=== PATIENT | female | born 1940 | race Caucasian/White ===

== ENCOUNTER 2024-01-10 05:45 | Emergency (ER) | payer OTHER, BC ==
[~2024-01-10] VITALS: Ht 170.2 cm; Wt 68.0 kg
[2024-01-10 05:48] VITALS: BP 189/71; PULSE 54; RESP 20; TEMP 98.2; O2SAT 99
--- NOTE | 2024-01-10 05:54 | NUR ---
PT JORGEA BLS TO ER BED 09
--- NOTE | 2024-01-10 06:01 | NUR ---
PATIENT PRESENTS TO ED WITH S/P FALL PT C/O LEFT ARM PAIN. PT STATES SHE FELL AT HOME IN HER BATHROOM, SHE LOST HER BALANCE. DENIES N/V/D; SKIN IS PINK/WARM/DRY; PT HAS LAC TO LEFT ELBOW. AAOX4 LUNGS CLEAR BL; HR EVEN AND REGULAR; PT DENIES ANY FEVER, CP, SOB, OR COUGH AT THIS TIME; PT DENIES LOC OR HITTING HER HEAD. PT REPORTS NOT BEING ON ANY BLOOD THINNERS. PATIENT STATES PAIN OF 6/10 AT THIS TIME; VSS; PATIENT POSITIONED FOR COMFORT; HOB ELEVATED; BEDRAILS UP X2; BED DOWN. ER MD MADE AWARE OF PT STATUS. PMHX HTN, DM2 NKA
--- NOTE | 2024-01-10 06:30 | NUR ---
ASSISTED PT TO RESTROOM VIA W/C FOR URINE COLLECTION.
--- NOTE | 2024-01-10 06:44 | NUR ---
URINE SENT TO LAB.
--- NOTE | 2024-01-10 06:48 | NUR ---
XRAY AT BEDSIDE.
[2024-01-10 06:59] LABS: APPEARANCE,URINE CLEAR (CLEAR); BILIRUBIN,URINE NEGATIVE (NEGATIVE); BLOOD, URINE NEGATIVE (NEGATIVE); COLOR,URINE YELLOW (YELLOW); LEUKOCYTE ESTERASE ,URINE TRACE (NEGATIVE); NITRITE, URINE NEGATIVE (NEGATIVE); PROTEIN,URINE 1+ (NEGATIVE); UGLUCOSE NEGATIVE (NEGATIVE); UROBILINOGEN,URINE 0.2 EU/dL (0.2 - 1)
--- NOTE | 2024-01-10 07:03 | NUR ---
PT CONSENT OBTAINED FOR TDAP VACCINE, TDAP VACCINE GIVEN TO PT PER ERMD ORDER. PT TOLERATED WELL.
[2024-01-10] MEDS: BACITRACIN OINT 500 UNITS/GM PKT TP ONE (07:06)
--- NOTE | 2024-01-10 07:16 | NUR ---
TUYERE FITTER AT BEDSIDE DRAWING LABS.
[2024-01-10 07:17] LABS: BACTERIA,URINE FEW /HPF (None Seen); MUCUS,URINE None Seen /LPF (None Seen); RBC,URINE 0-5 /HPF (0-5); SQUAMOUS EPITHELIAL CELL,UR 4-10 (MOD) /LPF (0-3 (FEW)); TRICHOMONAS,URINE None Seen /HPF (None Seen); WBC,URINE 0-5 /HPF (0-5); WHITE BLOOD CELL CASTS,URINE None Seen /LPF (None Seen); YEAST,URINE None Seen /HPF (None Seen)
--- NOTE | 2024-01-10 07:19 | NUR ---
Pt report given to CECILIA FIELD. Transfer of care at this time.
--- NOTE | 2024-01-10 07:28 | NUR ---
WILL CONT., PLAN OF CARE FOR PT. WOUND CARE COMPLETED. PT STATES 2/10 SHOULDER PAIN.
[2024-01-10 07:29] LABS: BASOPHILS # (AUTO) 0.1 K/uL (0.00-0.22); BASOPHILS % (AUTO) 0.4 % (0.0-2.0); EOSINOPHILS # (AUTO) 0.2 K/uL (0-0.4); EOSINOPHILS % (AUTO) 1.6 % (0.0-4.0); HEMATOCRIT 33.5 % (36-48); HEMOGLOBIN 11.1 g/dL (12.0-16.0); LYMPHOCYTES # (AUTO) 1.3 K/uL (2.5-16.5); MEAN CORPUSCULAR HEMOGLOBIN 28 pg (27-31); MEAN CORPUSCULAR HGB CONC 33 g/dL (33-37); MEAN CORPUSCULAR VOLUME 85.4 fL (80-94); MONOCYTES # (AUTO) 0.7 K/uL (0.8-1.0); MONOCYTES % (AUTO) 6.3 % (1.7-9.3); NEUTROPHILS # (AUTO) 9.3 K/uL (1.8-7.7); NEUTROPHILS % (AUTO) 80.7 % (42.2-75.2); PLATELET COUNT (AUTO) 252 K/uL (140-450); RED BLOOD CELL COUNT(AUTO) 3.92 MIL/uL (4.20-5.40); RED CELL DISTRIBUTION WIDTH 14.1 % (11.6-13.7); WHITE BLOOD COUNT (AUTO) 11.5 K/uL (4.8-10.8)
[2024-01-10 07:44] LABS: ALANINE AMINOTRANSFERASE 25 U/L (12-78); ALKALINE PHOSPHATASE 139 U/L (50-136); ASPARTATE AMINOTRANSFERASE 25 U/L (15-37); BILIRUBIN,DIRECT 0.1 mg/dL (0.0-0.3); INR 0.96 (0.8-1.2); PARTIAL THROMBOPLASTIN TIME 24.7 secs (22-35.6); PROTHROMBIN TIME 10.1 secs (10.8-13.4); TOTAL BILIRUBIN 0.4 mg/dL (0.0-1.0); TOTAL PROTEIN, SERUM 7.3 g/dL (6.4-8.2)
[2024-01-10 07:52] LABS: ANION GAP 14.3 (8-16); CALCIUM 9.1 mg/dL (8.5-10.1); CARBON DIOXIDE 23.9 mmol/L (21-32); CHLORIDE 104 mmol/L (98-107); CREATININE 1.7 mg/dL (0.6-1.3); GLUCOSE 173 mg/dL (74-106); POTASSIUM 4.2 mmol/L (3.5-5.1); SODIUM SERUM 138 mmol/L (136-145); UREA NITROGEN, BLOOD 43 mg/dL (7-18)
[2024-01-10] MEDS: NACL 0.9% 1,000 ML IV ONE (08:39)
[2024-01-10] MEDS: amLODIPine 5 MG TAB PO ONE (08:43)
--- NOTE | 2024-01-10 09:46 | NUR ---
PT TO CT SCAN VIA KRUPA WITH MACHINE OPERATOR PICKER
--- NOTE | 2024-01-10 09:46 | NUR ---
PT'S BLOOD PRESSURE 208/58 REPORTED TO . AWAITING FURTHER ORDER.
--- NOTE | 2024-01-10 10:01 | NUR ---
pt to be transfred to [facility] due to higher level of care
[2024-01-10] MEDS: NICARDIPINE HYDROCHLORIDE 25 MG in NACL 0.9% 240 ML IV ONE (10:35)
[2024-01-10] MEDS: LABETALOL 20 MG/4 ML VIAL IVP ONE (11:51)
[2024-01-10] MEDS: CLONIDINE HYDROCHLORIDE 0.1 MG TAB PO ONE (12:05)
--- NOTE | 2024-01-10 12:09 | NUR ---
CALLED REPORT TO [facility] RM 271. CHARGE NURSE STATED THAT THEY NEEDED TO SPEAK TO HOUSE SUP FOR ROOM ASSIGMENTS SINCE PT HAD A FALL THAT RESULTED IN A SKULL FACTURE AND BLEED
--- NOTE | 2024-01-10 12:11 | NUR ---
Patient appears to be resting comfortably in bed. Vital Signs within normal limits. Respirations even and unlabored. PT IS ON A CONT. DRIP FOR BLOOD PRESSURE
[2024-01-10 13:05] VITALS: BP 136/82; PULSE 68; RESP 20; TEMP 97.2; O2SAT 91
--- NOTE | 2024-01-10 13:07 | NUR ---
Patient to be transferred to [facility] rm 271. Is being transferred due to brain bleed and fracture and higher level of care. Receiving facility has accepting physician and available space. ER physician has signed transfer form. Patient or responsible constitution party has agreed to transfer and signed form. Patient belongings inventoried and will be sent with patient. Copy of nursing notes, lab reports, EKG, Physicians Orders and X-rays to be sent with patient. Report called to [facility] nurse at receiving facility. ambulance service has been called for transfer. ETA is 10 mins
== END 2024-01-10 13:07 | disposition short-term general hospital (02) ==
LOC: MED 05:45
DX: S06.6X0A Traumatic subarachnoid hemorrhage without loss of consciousness, initial encounter (principal); S51.812A Laceration without foreign body of left forearm, initial encounter; S61.412A Laceration without foreign body of left hand, initial encounter; R55 Syncope and collapse; N17.9 Acute kidney failure, unspecified; I10 Essential (primary) hypertension; E11.9 Type 2 diabetes mellitus without complications; W18.39XA Other fall on same level, initial encounter; Y92.89 Other specified places as the place of occurrence of the external cause; Y93.89 Activity, other specified; Y99.8 Other external cause status
CPT/HCPCS: 36415; 70450; 71045; 73080; 80048; 80076; 81001; 83880; 84484; 85025; 85610; 85730; 90471; 90715; 93005; 96361; 96365; 96366; 96375; 99291; J3490; J7030; Q0092